=== PATIENT | male | born 1955 | race Caucasian/White ===

== ENCOUNTER → 2022-07-15 10:00 | Outpatient (BNVA) | payer MEDICARE, SELFPAY | PROVIDERS: PCP Family Medicine; Visit Provider Family Medicine | DX: Z51.81 Encounter for therapeutic drug level monitoring (principal); I10 Essential (primary) hypertension; Z13.220 Encounter for screening for lipoid disorders; N18.30 Chronic kidney disease, stage 3 unspecified; M10.9 Gout, unspecified; R35.0 Frequency of micturition | CPT/HCPCS: 80053; 80061; 84153; 84550; 85025 ==

== ENCOUNTER → 2023-07-14 14:55 | Outpatient (BNVA) | payer MEDICARE, SELFPAY | PROVIDERS: PCP Family Medicine; Visit Provider Family Medicine | DX: Z51.81 Encounter for therapeutic drug level monitoring (principal); R03.0 Elevated blood-pressure reading, without diagnosis of hypertension; R73.09 Other abnormal glucose | CPT/HCPCS: 80053; 83036; 84550; 85025 ==

== ENCOUNTER 2023-07-22 07:26 | Outpatient (CLI) | payer MEDICARE, SELFPAY ==
--- NOTE | 2023-07-22 | ECG_ITS ---
[facility] Test Date: 2023-07-22 Pat Name: Bob Robertson Department: Room: Gender: Male [employer]ger: : 1955 Requested By: Esequiel Schmitz Order Number: [id number] Campos MD: Sandra Landaverde M.D. Interpretive Statements NAME OF STUDY: LEXISCAN SESTAMIBI STRESS TEST INDICATION: Chest Pain PROCEDURE: At the baseline, the EKG revealed atrial fibrillation with controlled ventricular response rate of 93 bpm. Right bundle branch block pattern.. The baseline heart was 93 bpm with a blood pressue of 139/97 mm of Hg Lexiscan was infused over a period of 20 seconds. A total of 0.4 milligrams of Lexiscan was infused. The stress phase was continued for a total of 5 minutes. Heart rate at the end of the stress phase was 190 bpm with a blood pressure 155/93 mm of Hg. The EKG at the peak infusion revealed no significant changes. Sestamibi was injected 20 seconds after the Lexiscan infusion. Heart rate at the end of the recovery phase was 103 bpm with a blood pressure of 114/92 mm of Hg. CONCLUSION: 1. No significant EKG changes with the LexiScan infusion 2. No LexiScan induced chest pain or cardiac arrhythmia 3. Normal blood pressure and heart rate response 4. Sestamibi/sestamibi perfusion scan pending; see separate report. Electronically Signed On 07-26-2023 20:27:57 REGISTERED NURSE OBSTETRICS by Sandra Landaverde M.D. [email or web address]
[2023-07-22 07:39] VITALS: BMI 32.4
--- NOTE | 2023-07-22 08:02 | NMCV_ITS ---
NM samantha perf SPECT r/s* [id number] Bob Robertson Age: 68 Gender: M : 1955 Exam Date: 07/22/2023 08:16 Ordering Phys: Esequiel Geiger MD Technologist: KAVON Cosby Exam Location: [facility] Indications: CHEST PAIN STRESS TEST Please see separate stress test report in [facility] for full findings IMAGE PROTOCOL Rest/Stress 1 Lexiscan Day Radiopharmaceutical Dose (mCi) Administration Site Administered by Rest: Tc-99m 10.8 IV KAVON Johnson Sestamibi Stress:Tc-99m 32.5 IV KAVON Johnson Sestamibi Rest: 22-Jul-2023 60 Discovery 630 Stress: 22-Jul-2023 30 Discovery 630 0.4mg Lexiscan. Images obtained in supine and prone position. SPECT RESULTS Technical Quality: Excellent Raw Data Analysis: Normal Image Corrections: No attenuation or motion correction applied Summed Stress Score: 0 Summed Rest Score: 0 Summed Difference Score: 0 PERFUSION FINDINGS Uniform myocardial tracer uptake with no significant perfusion abnormalities FUNCTIONAL RESULTS (calculated via Gated SPECT) Stress Image LV EF (%): 76 Stress EDV (mL):91 TID: 0.85 Stress ESV (mL):22 FUNCTIONAL FINDINGS: Segmental wall motion analysis revealing no gross wall motion abnormalities IMPRESSIONS 1. Uniform myocardial tracer uptake with no significant perfusion abnormalities. 2. Normal LV ejection fraction of 76%. 3. LV wall motion analysis revealing no gross wall motion abnormalities. 4. Normal LV volume Low probability for coronary ischemia, based on the above findings Dr Sandra Landaverde MD FACC (Electronically Signed) Final Date: 22 July 2023 11:35 S
[2023-07-22] MEDS: regadenoson 0.4 Mg/5 ml Syringe 0.400000000000000022 MG IVP (09:00)
[2023-07-22 09:27] VITALS: BP 112/64; PULSE 83
== END 2023-07-22 07:27 | disposition home or self-care (01) ==
PROVIDERS: PCP Family Medicine; Visit Provider Family Medicine
DX: R07.9 Chest pain, unspecified (principal)
CPT/HCPCS: 36415; 78452; 93017; 96374; A9500; J2785

== ENCOUNTER 2023-07-30 14:28 | Outpatient (CLI) | payer MEDICARE, SELFPAY ==
--- NOTE | 2023-07-30 14:45 | US_ITS ---
WS: [id number] RENAL ULTRASOUND URINARY BLADDER ULTRASOUND HISTORY: Increasing creatinine COMPARISON: None available. TECHNIQUE: 2-D and color Doppler imaging of the kidney submitted. Right kidney: 8.8 cm x 4.4 cm x 6.0 cm. Low normal size kidney. There is marked increased echogenicity and poor corticomedullary differentiat ion. Mild diffuse thinning of the cortex. No renal mass or obstruction. Left kidney: 10.3 cm x 4.5 cm x 5.0 cm. LEFT kidney is more normal size but there is diffuse increased echogenicity. No obstruction. Very mil d cortical thinning. Aorta: Normal. Urinary Bladder: Normally distended bladder. There is mild diffuse wall thickening which may be due t o outlet obstruction. There is no focal mass or focal asymmetric thickening. Prevoid volume: 160 mL. Postvoid volume 20 mL. IMPRESSION: 1. Low normal size RIGHT kidney. LEFT kidney is normal size. 2. There is bilateral advanced chronic medical renal disease. 3. No renal obstruction. 4. No significant post void residual in the urinary bladder.
== END 2023-07-30 14:29 | disposition home or self-care (01) ==
LOC: RAD 14:29
PROVIDERS: PCP Family Medicine; Visit Provider Family Medicine
DX: N18.9 Chronic kidney disease, unspecified (principal)
CPT/HCPCS: 76770; 76857; 80048

== ENCOUNTER → 2023-08-29 11:53 | Outpatient (BNVA) | payer MEDICARE, SELFPAY | PROVIDERS: PCP Family Medicine; Visit Provider Family Medicine | DX: N18.30 Chronic kidney disease, stage 3 unspecified (principal); M10.9 Gout, unspecified | CPT/HCPCS: 80048; 84550 ==

== ENCOUNTER → 2023-09-26 09:59 | Outpatient (BNVA) | payer MEDICARE, SELFPAY | PROVIDERS: PCP Family Medicine; Visit Provider Family Medicine | DX: N18.9 Chronic kidney disease, unspecified (principal); N18.30 Chronic kidney disease, stage 3 unspecified; R79.89 Other specified abnormal findings of blood chemistry | CPT/HCPCS: 80069; 82306; 82542; 82570; 84156; 85025 ==

== ENCOUNTER → 2023-09-30 11:04 | Outpatient (BNVA) | payer MEDICARE, SELFPAY | PROVIDERS: PCP Family Medicine; Visit Provider Family Medicine | DX: Z00.00 Encounter for general adult medical examination without abnormal findings (principal); I12.9 Hypertensive chronic kidney disease with stage 1 through stage 4 chronic kidney disease, or unspecified chronic kidney disease; N18.30 Chronic kidney disease, stage 3 unspecified; R79.89 Other specified abnormal findings of blood chemistry | CPT/HCPCS: 80048; 80069; 82306; 82542; 85025 ==

== ENCOUNTER → 2024-02-02 10:23 | Outpatient (BNVA) | payer MEDICARE, SELFPAY | PROVIDERS: PCP Family Medicine; Visit Provider Family Medicine | DX: Z51.81 Encounter for therapeutic drug level monitoring (principal); Z13.220 Encounter for screening for lipoid disorders; E55.9 Vitamin D deficiency, unspecified; I10 Essential (primary) hypertension; R35.0 Frequency of micturition; R03.0 Elevated blood-pressure reading, without diagnosis of hypertension | CPT/HCPCS: 80053; 80061; 82306; 84153; 85025 ==

== ENCOUNTER → 2024-03-29 07:06 | Outpatient (BNVA) | payer MEDICARE, SELFPAY | PROVIDERS: PCP Family Medicine; Visit Provider Family Medicine | DX: N18.30 Chronic kidney disease, stage 3 unspecified (principal) | CPT/HCPCS: 80048; 80069; 82306; 82542; 82570; 84155; 84156; 84165; 85025 ==

== ENCOUNTER → 2024-09-20 10:06 | Outpatient (BNVA) | payer MEDICARE, SELFPAY | PROVIDERS: PCP Family Medicine; Visit Provider Family Medicine | DX: N18.30 Chronic kidney disease, stage 3 unspecified (principal); R73.09 Other abnormal glucose; R79.89 Other specified abnormal findings of blood chemistry | CPT/HCPCS: 80069; 82306; 82542; 82570; 84155; 84156; 84165; 85025 ==

== ENCOUNTER → 2025-03-21 07:42 | Outpatient (BNVA) | payer MEDICARE, SELFPAY | PROVIDERS: PCP Family Medicine; Visit Provider Family Medicine | DX: N18.30 Chronic kidney disease, stage 3 unspecified (principal) | CPT/HCPCS: 80069; 82306; 84155; 84165; 85025 ==

== ENCOUNTER 2025-03-30 09:39 | Outpatient (CLI) | payer MEDICARE, SELFPAY ==
[2025-03-30 11:14] LABS: Glucose Urine UA Negative (Normal); Nitrate Urine Negative (Negative); Specific Gravity, Urine 1.005 (1.005-1.030)
[2025-03-30 11:34] LABS: Magnesium 2.2 mg/dL (1.7-2.3)
[2025-03-30 11:37] LABS: Creatinine Urine, Random 20 mg/dL (39-259)
[2025-03-30 11:47] LABS: Microalbum Creatinine Ratio Ur 1600 mg/dL (0-20)
[2025-03-31 08:15] LABS: Protein/Creatinine Ratio 0.792 (<0.100); Protein/Creatinine Ratio 792 mg/g creat (<100)
[2025-03-31 14:01] LABS: KAPPA LIGHT CHAIN, FREE, SERUM 39.3 mg/L (3.3-19.4); KAPPA/LAMBDA LIGHT CHAINS FREE 1.09 (0.26-1.65); LAMBDA LIGHT CHAIN, FREE, SERU 35.9 mg/L (5.7-26.3)
== END 2025-03-30 09:40 | disposition home or self-care (01) ==
PROVIDERS: PCP Family Medicine; Visit Provider Registered Nurse
DX: R80.8 Other proteinuria (principal)
CPT/HCPCS: 36415; 81001; 82044; 83735; 83883; 84156; 84166; 86335